=== PATIENT | male | born 1960 | race Caucasian/White ===

== ENCOUNTER 2016-12-07 13:58 | Emergency (ER) | payer SELFPAY ==
[~2016-12-07] VITALS: Ht 167.6 cm; Wt 82.0 kg
[2016-12-07 14:08] VITALS: BP 157/86; PULSE 103; RESP 14; TEMP 97.8; O2SAT 97
--- NOTE | 2016-12-07 16:10 | PD ---
HPI . right wrist injury Chief Complaint: Injury Time Seen by Provider: 15:46 Travel History International Travel<30 days: No Contact w/Intl Traveler<30days: No Traveled to known affect area: No History of Present Illness HPI 56-year-old male with history of tobaccoism here with complaints of right distal wrist pain. Patient was at work using some type of digging machine when it hit a piece of rebar that flew up and hit him on the right distal aspect of his medial wrist. He is now complaining of pain at the distal ulna. He tells me the pain is minimal and he is here just because he thinks he may have broken it. He does not want anything for pain. He has decreased strength in this hand due to the discomfort. He has no other issues. He is accompanied by his boss. He is right handed dominant. [facility] Past Medical History Medical History: Denies Significant Hx Diminished Hearing: No Tetanus Vaccination: Unknown Past Surgical History Surgical History: No Previous Surgery Social History Alcohol Use: No Tobacco Use: Yes (2 PPD) Substance Use: No Allergies-Medications (Allergen,Severity, Reaction): Coded Allergies: No Known Allergies (Unverified , 12/07/16) Reported Meds & Prescriptions Reported Meds & Active Scripts Active Ibuprofen 800 Mg Tab 800 Mg PO TID Review of Systems General / Constitutional: No: Fever Eyes: No: Visual changes HENT: No: Headaches Cardiovascular: No: Chest Pain or Discomfort Respiratory: No: Shortness of Breath Gastrointestinal: No: Abdominal Pain Genitourinary: No: Dysuria Musculoskeletal: Positive: Pain (right hand pain) Skin: No Rash Neurologic: No: Weakness Psychiatric: No: Depression Endocrine: No: Polydipsia Hematologic/Lymphatic: No: Easy Bruising Physical Exam Narrative GENERAL: AAO x 3, no acute distress, Well-nourished, well-developed patient. SKIN: Warm and dry. No visible rashes or bruising. small 1 cm circular abrasion to the right distal ulnar HEAD: Normocephalic and atraumatic. EYES: No scleral icterus. No injection or drainage. ENT: No nasal drainage noted. Mucous membranes pink. Airway patent. NECK: Supple, trachea midline. No JVD. CARDIOVASCULAR: Regular rate and rhythm without murmurs, gallops, or rubs. RESPIRATORY: Breath sounds diminished throughout. No accessory muscle use. No rhonchi or rales. GASTROINTESTINAL: Abdomen soft, non-tender, nondistended. EXTREMITIES: No cyanosis or edema. Tenderness to right distal ulnar area. Mild edema. 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 BACK: Nontender without obvious deformity. No CVA tenderness. PSYCH: AAO x 3, normal affect. Data Data Last Documented VS Vital Signs Date Time Temp Pulse Resp B/P Pulse Ox O2 Delivery O2 Flow Rate FiO2 12/07/16 15:40 16 97 Room Air 12/07/16 14:08 97.8 103 157/86 Orders Wrist, Complete ([id number]) (12/07/16 15:52) ^ Tommy Bandage (12/07/16 16:23) Wound Care (12/07/16 16:24) MDM Medical Decision Making Medical Screen Exam Complete: Yes Emergency Medical Condition: Yes Medical Record Reviewed: Yes Differential Diagnosis wrist fracture, wrist sprain, less likely open fracture Narrative Course 56-year-old male with history of tobaccoism here with complaints of right distal wrist pain. Patient was at work using some type of digging machine when it hit a piece of rebar that flew up and hit him on the right distal aspect of his medial wrist. He is now complaining of pain at the distal ulna. He tells me the pain is minimal and he is here just because he thinks he may have broken it. He does not want anything for pain. He has decreased strength in this hand due to the discomfort. He has no other issues. He is accompanied by his boss. He is right handed dominant. Patient seen and examined. There is a small abrasion to the distal ulna, but this is not an open fracture. The pain is actually located distal to the abrasion. X-ray of the wrist ordered. Advised f/u with PCP Worker's Comp forms filled. Xray no acute fracture. Tommy wrap provided. No use of right wrist for 2 days. Needs to see PCP for clearance. Patient verbalized understanding of instructions, questions were answered, and thanked me for their care. I advised them if their condition worsens, please return to the nearest emergency room for further care. Diagnosis Primary Impression: Wrist contusion Qualified Code: S60.211A - Contusion of right wrist, initial encounter Patient Instructions: Contusion in Adults (ED), General Instructions Additional Instructions: Rest the affected area as much as possible. Ice this area for 15-20 minutes at a time. You can do this every hour or as much as tolerated. Keep this area compressed (tommy bandage) as tolerated. Elevate this area. Use ibuprofen as needed for pain and inflammation. Please return to emergency department if your symptoms return or worsen. Follow up with your primary care provider. Take medications as prescribed. Med/Other Pt SpecificInfo: Prescription(s) given Scripts Ibuprofen 800 Mg [id number] Mg PO TID #21 TAB Prov:Fortino Florez MD 12/07/16 Disposition: 01 DISCHARGE HOME Condition: Stable Audra Torres Dec 07, 2016 16:10
--- NOTE | 2016-12-07 16:14 | RADHPO ---
EXAM DATE/TIME: 12/07/2016 15:56 [facility] COMPARISON: No previous studies available for comparison. INDICATIONS : Right wrist pain and laceration; injury to wrist at work today. MEDICAL HISTORY : None. SURGICAL HISTORY : None. ENCOUNTER: Initial ACUITY: 1 day PAIN SCORE: 9/10 LOCATION: Right medial wrist. FINDINGS: There is no acute fracture or dislocation of the right wrist. Mild degenerative changes are noted in volving the scaphotrapezium and scaphotrapezoid joints. There is mild soft-tissue swelling along the ulnar aspect of the right wrist. CONCLUSION: 1. No acute fracture or dislocation. 2. Mild degenerative changes involving the scaphotrapezium and scaphotrapezoid joints. 3. Mild soft-tissue swelling along the ulnar side of the wrist. Kt Santana MD on December 07, 2016 at 16:11 Board Certified Radiologist. This report was verified electronically.
[2016-12-07] MEDS ORDERED: IBUP800T23 PO (16:21)
== END 2016-12-07 16:44 | disposition home or self-care (01) ==
LOC: PHED 13:58
DX: M25.531 Pain in right wrist (principal); S60.211A Contusion of right wrist, initial encounter; F17.210 Nicotine dependence, cigarettes, uncomplicated; W20.8XXA Other cause of strike by thrown, projected or falling object, initial encounter; Y93.89 Activity, other specified; Y92.69 Other specified industrial and construction area as the place of occurrence of the external cause; Y99.0 Civilian activity done for income or pay
CPT/HCPCS: 73110; 99283